=== PATIENT | male | born 1980 | race Two or more races ===

== ENCOUNTER 2024-02-06 18:55 | Emergency (ER) | payer MEDICAID, SELFPAY ==
[2024-02-06 19:00] VITALS: BP 115/76; PULSE 70; RESP 16; TEMP 36.6; O2SAT 95; BMI 30.2
--- NOTE | 2024-02-06 19:05 | ECG_ITS ---
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 Measurements Intervals [place] Rate: 71 P: 19 ME: 160 QRS: 48 QRSD: 84 T: 8 QT: 358 QTc: 389 Interpretive Statements SINUS RHYTHM LOW QRS VOLTAGE IN PRECORDIAL LEADS [QRS DEFLECTION < 1.0 mV IN CHEST LEADS] No previous ECG available for comparison Electronically Signed On 02-10-2024 13:20:14 CDT by Rangel Bergman M.D. [email or web address] [id number]
--- NOTE | 2024-02-06 20:49 | XRR_ITS ---
PROCEDURE INFORMATION: Exam: XR Chest Exam date and time: 02/06/2024 9:11 PM Age: 43 years old Clinical indication: Pain; Chest pressure; Additional info: Cp TECHNIQUE: Imaging protocol: Radiologic exam of the chest. Views: 1 view. COMPARISON: No relevant prior studies available. FINDINGS: Lungs: Unremarkable. No consolidation. Pleural spaces: Unremarkable. No pleural effusion. No pneumothorax. Heart/Mediastinum: Unremarkable. No cardiomegaly. Bones/joints: Unremarkable. XR/XR chest 1V portable [id number] IMPRESSION: No acute findings.
--- NOTE | 2024-02-06 20:59 | ECG_ITS ---
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 Measurements Intervals [place] Rate: 58 P: 24 [place]: 164 QRS: 66 QRSD: 84 T: 30 QT: 385 QTc: 380 Interpretive Statements SINUS BRADYCARDIA No previous ECG available for comparison Electronically Signed On 02-10-2024 13:20:44 CDT by Rangel Bergman M.D. [id number]
[2024-02-06 21:10] VITALS: RESP 16; O2SAT 95
[2024-02-06] MEDS: morphine 4 mg/mL SDV 1 mL IVP (21:10)
[2024-02-06] MEDS: ondansetron 2 mg/ML SDV 2 mL 4 MG IVP (21:10)
--- NOTE | 2024-02-06 21:15 | CTR_ITS ---
PROCEDURE INFORMATION: Exam: CT Head Without Contrast Exam date and time: 02/06/2024 9:20 PM Age: 43 years old Clinical indication: Patient HX: Patient says he has a headache and has had some chest pain today. Patient believes he is dehydrated; Additional info: CISNEROS TECHNIQUE: Imaging protocol: Computed tomography of the head without contrast. Radiation optimization: All CT scans at this facility use at least one of these dose optimization techniques: automated exposure control; mA and/or kV adjustment per patient size (includes targeted exams where dose is matched to clinical indication); or iterative reconstruction. Other technique: STROKE PROTOCOL was implemented. COMPARISON: No relevant prior studies available. RADIATION DOSE METRICS: Total DLP (mGy-cm): 1055 FINDINGS: Brain: No hemorrhage. No edema. Focal areas of encephalomalacia noted within the anterior/inferior frontal lobes and deep white matter tracts of the right fontal lobe. No mass effect. Cerebral ventricles: No ventriculomegaly. Paranasal sinuses: Visualized sinuses are unremarkable. No fluid levels. Mastoid air cells: Visualized mastoid air cells are well aerated. Bones: Unremarkable. No acute fracture. Soft tissues: Unremarkable. CT/CT head wo con* [id number] IMPRESSION: No acute intracranial abnormality. ASSESSMENT: ASPECTS ([place] Stroke Program Early CT Score) is 10.
[2024-02-06 21:17] LABS: Basophils # 0.1 10^3/uL (0.0-0.1); Basophils % 0.5 %; Eosinophils % 0.3 %; Hematocrit 43.6 % (37-53); Lymphocytes # 1.7 10^3/uL (0.8-4.8); Lymphocytes % 15.6 %; Mean Corpuscular HGB Conc 33.5 g/dL (30-55); Mean Corpuscular Hemoglobin 29.9 pg (27-33); Mean Corpuscular Volume 89.2 fl (82-101); Mean Platelet Volume 8.9 fL (7.4-10.4); Monocytes # 0.8 10^3/uL (0.2-0.9); Monocytes % 7.7 %; Neutrophils # 7.97 10^3/uL (1.8-7.7); Neutrophils % 75.3 %; Nucleated Red Blood Cells % 0 %; Platelet Count 385 10^3/cmm (157-399); Red Blood Count 4.89 10^6/uL (3.85-5.65); White Blood Count 10.57 10^3/uL (3.29-11.43)
--- NOTE | 2024-02-06 21:22 | ED_ITS ---
HPI - Dizziness 2 General: Chief Complaint: Dizziness Stated Complaint: chest pain sob sharp pain jaw shoulders Time Seen by Provider: 02/06/24 20:49 Source: patient Mode of arrival: ambulatory Limitations: no limitations History of Present Illness: HPI Narrative: 43-year-old male states he felt like he had a heatstroke at work today states that the air conditioner went out he states that he was feeling extremely hot and sweaty he states around noon he started to feel lightheaded was slurring his speech states he tried to tough it out and had symptoms when he went home states he is having headache and been having feeling his jaw was locking up his chest was locking up he states that since being home and in the air conditioning being here his symptoms improved he is in no slurred speech here he is able ambulate he states his headache is improving he still has a headache he rates a 2 out of 10. He had nausea denies vomiting. Associated symptoms: Reports chest pain, headache(s) and nausea; Denies chills or vomiting Review of Systems 2 Const: Denies: fever(s), chills, body aches or change in appetite Eyes: Denies: blurry vision or eye discomfort ENMT: Denies: throat pain or dental pain Card: Reports: chest pain Resp: Denies: dyspnea GI: Reports: nausea; Denies: abdominal pain, vomiting or diarrhea : Denies: dysuria Musc: Denies: neck pain or back pain Skin/Breast: Denies: rash Neuro: Reports: headache(s), weakness in extremities and Slurred speech present Physical Exam 2 Const: COMMON NORMALS: no acute distress, patient oriented x3 and healthy appearing HENMT: COMMON NORMALS: normocephalic and atraumatic HEAD & SCALP: n ormocephalic and atraumatic Eye: COMMON NORMALS: Equal, round and reactive pupils present and EOMs intact bilaterally PUPIL: Yes Equal, round and reactive pupils present Neck/C-Spine: COMMON NORMALS: full ROM and supple Chest: COMMONS NORMALS: normal inspection of the chest Resp: COMMON NORMALS: normal respiratory effort, No retractions, No use of accessory muscles and clear to auscultation bilaterally AUSCULTATION: clear to auscultation bilaterally Cardio: COMMON NORMALS: regular rate, regular rhythm and No murmurs present (Cardio) RATE: regular rate RHYTHM: regular rhythm GI: COMMON NORMALS: Normal to inspection, nondistended, normoactive bowel sounds present, Soft to palpation, non-tender and no masses PALPATION: Yes Soft to palpation Extremity: COMMON NORMALS: normal to inspection and full ROM Neuro: COMMON NORMALS: patient oriented x3, moves all extremities and no focal motor deficits Psych: COMMON NORMALS: mental status grossly normal, Normal thought process present and cooperative THOUGHT PROCESS: Normal thought process present Skin: COMMON NORMALS: no rashes or lesions noted and no wounds GENERAL SKIN EXAM: no rashes or lesions noted Course 2 Vital Signs: Vital signs: Vital Signs Temperature 97.8 F 02/06/24 19:00 Pulse Rate 75 02/06/24 21:37 Respiratory Rate 15 02/06/24 21:37 Blood Pressure 123/82 02/06/24 21:37 Pulse Oximetry 98 02/06/24 21:37 MDM - Dizziness Medical Decision Making Patient presents here with heat exhaustion he feels much improved after fluids he has no signs of a stroke his troponin here is negative as well CT is normal the NIH is 0 he is stable for discharge we will get him a work note for tomorrow he is follow-up with PCP and return if worsening. Medical Records I reviewed the patient's medical records. Lab Data I reviewed the patient's lab results. 02/06/24 21:10 02/06/24 21:10 Radiology Impressions Chest X-Ray 02/06/24 20:49 IMPRESSION: No acute findings. Head CT 02/06/24 21:15 IMPRESSION: No acute intracranial abnormality. ASSESSMENT: ASPECTS ([place] Stroke Program Early CT Score) is 10. Laboratory Results WBC 10.57 10^3/uL (3.29-11.43) 02/06/24 21:10 RBC 4.89 10^6/uL (3.85-5.65) 02/06/24 21:10 Hgb 14.60 g/dL (11.27-16.99) 02/06/24 21:10 Hct 43.6 % (37-53) 02/06/24 21:10 MCV 89.2 fl (82-101) 02/06/24 21:10 MCH 29.9 pg (27-33) 02/06/24 21:10 MCHC 33.5 g/dL (30-55) 02/06/24 21:10 RDW 13.0 % (12.1-15.1) 02/06/24 21:10 Plt Count 385 10^3/cmm (157-399) 02/06/24 21:10 MPV 8.9 fL (7.4-10.4) 02/06/24 21:10 Neut % (Auto) 75.3 % 02/06/24 21:10 Lymph % (Auto) 15.6 % 02/06/24 21:10 [place] % (Auto) 7.7 % 02/06/24 21:10 Eos % (Auto) 0.3 % 02/06/24 21:10 Baso % (Auto) 0.5 % 02/06/24 21:10 Neut # (Auto) 7.97 10^3/uL (1.8-7.7) H 02/06/24 21:10 Lymph # (Auto) 1.7 10^3/uL (0.8-4.8) 02/06/24 21:10 [place] # (Auto) 0.8 10^3/uL (0.2-0.9) 02/06/24 21:10 Eos # (Auto) 0.0 10^3/uL (0.0-0.8) 02/06/24 21:10 Baso # (Auto) 0.1 10^3/uL (0.0-0.1) 02/06/24 21:10 Nucleated RBC % (auto) 0 % 02/06/24 21:10 Nucleated RBCs # 0.0 /100WBC 02/06/24 21:10 Sodium 137 mmol/L (136-145) 02/06/24 21:10 Potassium 4.9 mmol/L (3.5-5.1) 02/06/24 21:10 Chloride 101 mmol/L (98-107) 02/06/24 21:10 Carbon Dioxide 22 mmol/L (22-29) 02/06/24 21:10 Anion Gap 18.9 (5-19) 02/06/24 21:10 BUN 32 mg/dL (6-20) H 02/06/24 21:10 Creatinine 1.9 mg/dL (0.7-1.2) H 02/06/24 21:10 GFR Calculation 38.5 mL/min (90-130) L 02/06/24 21:10 Glucose 107 mg/dL (65-115) 02/06/24 21:10 Calculated Osmolality 291 mOsm/kg (285-295) 02/06/24 21:10 Calcium 9.8 mg/dL (8.5-10.5) 02/06/24 21:10 Total Bilirubin 0.3 mg/dL (0.15-1.2) 02/06/24 21:10 AST 29 U/L (0-40) 02/06/24 21:10 ALT 45 U/L (0-41) H 02/06/24 21:10 Alkaline Phosphatase 89 U/L (40-130) 02/06/24 21:10 Creatine Kinase 173 U/L (39-308) 02/06/24 21:10 Troponin T Baseline 8 ng/L (0-15) 02/06/24 21:10 Total Protein 7.9 g/dL (6.6-8.7) 02/06/24 21:10 Albumin 4.5 g/dL (3.5-5.2) 02/06/24 21:10 Globulin 3.4 g/dL (1.3-4.6) 02/06/24 21:10 All radiology interpretation(s) finalized by discharge EKG Data EKG 1: I personally reviewed and interpreted this EKG as follows: EKG interpretation date: 02/06/24 EKG interpretation time: 20:59 Interpretation: sinus fidel hr [address] or t wave abnormalities qrs 84 qtc 382 EKG 2: I personally reviewed and interpreted this EKG as follows: EKG interpretation date: 02/06/24 EKG interpretation time: 21:15 Interpretation: nsr hr [address] or t wave abnormalities qrs 86 qtc 364 Discharge Plan Discharge Patient Disposition: Home Clinical Impression: Heat exhaustion Condition: Stable Prescriptions: No Action lisinopril 5 mg tablet 5 mg PO DAILY aspirin [Adult Aspirin Regimen] 81 mg tablet,delayed release (DR/EC) 81 mg PO DAILY amoxicillin-pot clavulanate 875-125 mg tablet 1 tab PO BID 7 Days Qty: 14 0RF fluticasone propionate [Flonase Allergy Relief] 50 mcg/actuation spray,suspension 1 spray intranasal DAILY Qty: 16 0RF Rx Instructions: administer into each nostril Discharge Orders: Discharge ED (Routine); Ordered 02/06/24 Ordered By: Bebeto Brown Referrals: Alfonzo Patton DO [Primary Care Provider] - 4-7 days Discharge Diet: Advance as tolerated Discharge Activity: Resume usual activity Patient Instructions: Heat Exhaustion (ED) Stand Alone Forms: Work/School Release Coding Level of Care Code ED Account Manager Education for Chg Fwd NIH stroke score NIHSS Level Of Consciousness - 1a: 0 Level Of Consciousness Questions - 1b: Both Correct Level Of Consciousness Commands - 1c: Both Correct Best Gaze - 2: Normal Visual Davis - 3: No Visual Loss Facial Palsy - 4: Normal Motor Arm Right - 5: No Drift Motor Arm Left - 5: No Drift Motor Leg Right - 6: No Drift Motor Leg Left - 6: No Drift Limb Ataxia - 7: Absent Sensory - 8: Normal Best Language - 9: No Aphasia Dysarthia - 10: Normal Extinction And Inattention - 11: 0 Score Total Score: 0
[2024-02-06 21:30] LABS: Alanine Aminotransferase 45 U/L (0-41); Albumin Level 4.5 g/dL (3.5-5.2); Alkaline Phosphatase 89 U/L (40-130); Anion Gap 18.9 (5-19); Aspartate Amino Transferase 29 U/L (0-40); Blood Urea Nitrogen 32 mg/dL (6-20); Calcium 9.8 mg/dL (8.5-10.5); Carbon Dioxide 22 mmol/L (22-29); Chloride 101 mmol/L (98-107); Creatine Phosphokinase 173 U/L (39-308); Globulin 3.4 g/dL (1.3-4.6); Glomerular Filtration Rate 38.5 mL/min (90-130); Glucose 107 mg/dL (65-115); Osmolality Calculated 291 mOsm/kg (285-295); Potassium 4.9 mmol/L (3.5-5.1); Sodium 137 mmol/L (136-145); Total Bilirubin 0.3 mg/dL (0.15-1.2); Total Protein 7.9 g/dL (6.6-8.7); Troponin(5th) Baseline 8 ng/L (0-15)
[2024-02-06] MEDS: sodium chloride 0.9% 1,000 ML 999 ML IV ×2 (21:34→22:33)
[2024-02-06 21:37] VITALS: BP 123/82; PULSE 75; RESP 15; O2SAT 98
[2024-02-06 21:39] LABS: Creatinine Clr Calc Pharmacy 55.2878
--- NOTE | 2024-02-06 22:35 | ECG_ITS ---
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 Measurements Intervals [place] Rate: 49 P: 26 MO: 170 QRS: 62 QRSD: 88 T: 25 QT: 438 QTc: 397 Interpretive Statements SINUS BRADYCARDIA Compared to ECG 02/06/2024 20:59:28 No significant changes Electronically Signed On 02-10-2024 13:47:14 CDT by Rangel Bergman M.D. [email or web address] [email or web address] township [id number]
[2024-02-06 23:07] VITALS: BP 120/80; PULSE 68; RESP 16; O2SAT 95
== END 2024-02-06 23:09 | disposition home or self-care (01) ==
PROVIDERS: Emergency Provider Emergency Medicine; PCP Family Medicine
DX: T67.5XXA Heat exhaustion, unspecified, initial encounter (principal); X30.XXXA Exposure to excessive natural heat, initial encounter; R00.1 Bradycardia, unspecified; Z79.82 Long term (current) use of aspirin; Y99.0 Civilian activity done for income or pay
CPT/HCPCS: 70450; 71045; 80053; 82550; 84484; 85025; 93005; 96361; 96374; 96375; 99285; J2270; J2405; J7030